=== PATIENT | female | born 1990 | race Caucasian/White ===

== ENCOUNTER 2016-07-14 19:35 | Emergency (ER) | payer OTHER ==
[~2016-07-14] VITALS: Ht 154.9 cm; Wt 85.4 kg
[~2016-07-14 19:35] MED LIST: MOTRIN800 MG PO
[2016-07-14 20:07] LABS: HEMATOCRIT 41.5 % (36.0-46.0); MCH 31.1 PG (29.0-34.0); MCV 94.3 FL (83-99); RBC DIS.WIDTH-CV 11.9 % (11.8-14.6); RBC DIS.WIDTH-SD 41.6 % (39-53); WHITE BLOOD COUNT 12.5 K/uL (4.1-10.2)
[2016-07-14 20:13] LABS: ADD MIUA? YES; BILIRUBIN NEGATIVE; BLOOD NEGATIVE; COLOR YELLOW ((YELLOW)); GLUCOSE (STRIP) NEGATIVE; KETONES NEGATIVE; LEUKOCYTES NEGATIVE; NITRITE NEGATIVE; PROTEIN (STRIP) NEGATIVE; SPECIFIC GRAVITY 1.027 (1.000-1.030)
[2016-07-14 20:22] LABS: CHLORIDE 105 mEq/L (99-109); SODIUM 139 mEq/L (136-147)
[2016-07-14 20:24] LABS: GLUCOSE 82 mg/dL (70-99)
[2016-07-14 20:25] LABS: ANION GAP 9 MEQ/L (2-14)
[2016-07-14 20:26] LABS: TOTAL BILIRUBIN 0.3 mg/dL (0.0-1.0)
[2016-07-14 20:28] LABS: ALKALINE PHOSPHATASE 75 IU/L (3-129); GFR ESTIMATE (CALCULATED) > 59 mL/min/
[2016-07-14 20:29] LABS: UREA NITROGEN (BUN) 9 mg/dL (9-23)
[2016-07-14 20:37] LABS: QUANTITATIVE HCG < 4.0 MIU/ML
[2016-07-14 20:51] LABS: PLATELET COUNT 265 K/uL (156-360)
[2016-07-14 21:13] LABS: BACTERIA NONE SEEN /HPF; EPITHELIAL CELLS 2+ /HPF; MUCUS TRACE /LPF; RED BLOOD CELLS 0-5 /HPF (0-5); UCUL ADDED? NO; WHITE BLOOD CELLS 0-5 /HPF (0-5)
[2016-07-14 21:14] LABS: CASTS NONE SEEN /LPF; CRYSTALS NONE SEEN
[2016-07-14 22:25] LABS: LIPASE 24 U/L (1.0-51.0)
[2016-07-15] MEDS ORDERED: ZOFRAN ODT4 MG PO (00:26)
[2016-07-15] MEDS ORDERED: ZITHROMAX Z-PA250 MG PO (00:26)
[2016-07-15 00:43] VITALS: BP 111/60
== END 2016-07-15 00:46 | disposition home or self-care (01) ==
LOC: EME 19:35
DX: R10.11 Right upper quadrant pain (principal); R59.1 Generalized enlarged lymph nodes; K92.0 Hematemesis; F17.200 Nicotine dependence, unspecified, uncomplicated
CPT/HCPCS: 76705; 80053; 81003; 83690; 84702; 85027; 99281; 99284

== ENCOUNTER 2016-12-27 03:56 | Emergency (ER) | payer OTHER ==
[~2016-12-27] VITALS: Ht 154.9 cm; Wt 80.9 kg
[~2016-12-27 03:56] MED LIST changes: +ZITHROMAX Z-PA250 MG PO; +ZOFRAN ODT4 MG PO
[2016-12-27 05:09] LABS: BASOPHIL COUNT 0.1 K/uL (0-0.1); EOSINOPHIL (%) 2.6 % (0-5); EOSINOPHIL COUNT 0.2 K/uL (0-0.3); IMMATURE GRANULOCYTE (%) 0.2 % (0.0-0.7); INSTRUMENT ABS NEUTROPHIL CT 6.4 K/uL; LYMPHOCYTE COUNT 1.1 K/uL (1.0-2.8); MCH 31.5 PG (29.0-34.0); MCHC 34.3 G/DL (30.0-36.0); MCV 91.9 FL (83-99); MEAN PLAT.VOLUME 11.7 uM^3 (9.5-12.4); MONOCYTE (%) 7.3 % (3-12); MONOCYTE COUNT 0.6 K/uL (0-0.8); NEUTROPHIL (%) 76.1 % (45-76); NEUTROPHIL COUNT 6.4 K/uL (1.8-6.4); PLATELET COUNT 152 K/uL (156-360); RBC DIS.WIDTH-CV 12.1 % (11.8-14.6); RED BLOOD COUNT 4.57 M/uL (3.80-5.20); WHITE BLOOD COUNT 8.5 K/uL (4.1-10.2)
[2016-12-27 05:17] LABS: CHLORIDE 105 mEq/L (99-109); POTASSIUM 3.8 mEq/L (3.7-5.4); SODIUM 138 mEq/L (136-147)
[2016-12-27 05:19] LABS: GLUCOSE 100 mg/dL (70-99)
[2016-12-27 05:20] LABS: ANION GAP 11 MEQ/L (2-14)
[2016-12-27 05:21] LABS: TOTAL BILIRUBIN 0.6 mg/dL (0.0-1.0)
[2016-12-27 05:23] LABS: ALKALINE PHOSPHATASE 91 IU/L (3-129); GFR ESTIMATE (CALCULATED) > 59 mL/min/
[2016-12-27 05:24] LABS: UREA NITROGEN (BUN) 14 mg/dL (9-23)
[2016-12-27 05:31] LABS: QUANTITATIVE HCG < 4.0 MIU/ML
[2016-12-27 05:44] LABS: ADD MIUA? YES; BILIRUBIN NEGATIVE; BLOOD MODERATE; COLOR YELLOW ((YELLOW)); GLUCOSE (STRIP) NEGATIVE; KETONES NEGATIVE; LEUKOCYTES TRACE; NITRITE NEGATIVE; PROTEIN (STRIP) NEGATIVE; SPECIFIC GRAVITY 1.018 (1.000-1.030); UROBILINOGEN 0.2 MG/DL (0.2-1.0)
[2016-12-27 05:45] LABS: BACTERIA RARE /HPF; EPITHELIAL CELLS 1+ /HPF; MUCUS TRACE /LPF; RED BLOOD CELLS 0-5 /HPF (0-5); UCUL ADDED? NO; WHITE BLOOD CELLS 0-5 /HPF (0-5)
[2016-12-27 06:27] LABS: C-REACTIVE PROTEIN 53.2 MG/L (0-10)
[2016-12-27] MEDS ORDERED: OXYCODONE H5 MG/5 ML PO ×2 (06:46→06:53)
[2016-12-27] MEDS ORDERED: CARAFATE100 MG/ML PO (06:46)
[2016-12-27] MEDS ORDERED: DECADRON4 MG PO (06:53)
[2016-12-27 07:45] VITALS: BP 100/50
== END 2016-12-27 07:45 | disposition home or self-care (01) ==
LOC: EME 03:56
PROVIDERS: Emergency Medicine
DX: B08.4 Enteroviral vesicular stomatitis with exanthem (principal); F17.200 Nicotine dependence, unspecified, uncomplicated; Z88.0 Allergy status to penicillin
CPT/HCPCS: 71020; 80053; 81003; 83605; 84702; 85025; 86140; 87040; 87651 90; 99281; 99285; J1100; J1885; J7030

== ENCOUNTER 2017-02-21 16:18 | Emergency (ER) | payer OTHER ==
[~2017-02-21] VITALS: Ht 157.5 cm; Wt 79.9 kg
[~2017-02-21 16:18] MED LIST changes: +CARAFATE100 MG/ML PO; +DECADRON4 MG PO; +OXYCODONE H5 MG/5 ML PO
[2017-02-21 16:32] VITALS: BP 164/92
[2017-02-21] MEDS ORDERED: SUDAFED 12-HOU120 MG PO (18:41)
== END 2017-02-21 19:00 | disposition home or self-care (01) ==
LOC: EME 16:18
DX: H92.01 Otalgia, right ear (principal); H65.01 Acute serous otitis media, right ear; J40 Bronchitis, not specified as acute or chronic; F41.9 Anxiety disorder, unspecified; F32.9 Major depressive disorder, single episode, unspecified; F17.200 Nicotine dependence, unspecified, uncomplicated; Z88.0 Allergy status to penicillin
CPT/HCPCS: 94664; 99281; 99282

== ENCOUNTER 2017-05-21 12:52 | Emergency (ER) | payer OTHER ==
[~2017-05-21] VITALS: Ht 157.5 cm; Wt 85.9 kg
[~2017-05-21 12:52] MED LIST changes: +SUDAFED 12-HOU120 MG PO
[2017-05-21 13:51] LABS: HEMATOCRIT 42.6 % (36.0-46.0); HEMOGLOBIN 14.8 G/DL (11.9-15.5); MCH 32.2 PG (29.0-34.0); MCHC 34.7 G/DL (30.0-36.0); MCV 92.8 FL (83-99); PLATELET COUNT 180 K/uL (156-360); RBC DIS.WIDTH-CV 12.7 % (11.8-14.6); RBC DIS.WIDTH-SD 43.2 % (39-53); RED BLOOD COUNT 4.59 M/uL (3.80-5.20); WHITE BLOOD COUNT 11.5 K/uL (4.1-10.2)
[2017-05-21 14:01] LABS: ALBUMIN 4.2 g/dL (3.2-4.8)
[2017-05-21 14:02] LABS: CHLORIDE 106 mEq/L (99-109); POTASSIUM 4.2 mEq/L (3.7-5.4); SODIUM 136 mEq/L (136-147)
[2017-05-21 14:04] LABS: GLUCOSE 93 mg/dL (70-99); TOTAL PROTEIN 7.2 g/dL (6.4-8.3)
[2017-05-21 14:06] LABS: TOTAL BILIRUBIN 1.2 mg/dL (0.0-1.0)
[2017-05-21 14:07] LABS: ALKALINE PHOSPHATASE 63 IU/L (3-129)
[2017-05-21 14:08] LABS: CREATININE 0.7 mg/dL (0.6-1.3); GFR ESTIMATE (CALCULATED) > 59 mL/min/
[2017-05-21 14:09] LABS: AST (GOT) 16 IU/L (2-34); UREA NITROGEN (BUN) 12 mg/dL (9-23)
[2017-05-21 14:11] LABS: ALT (GPT) 12 IU/L (3-49)
[2017-05-21 14:16] LABS: QUANTITATIVE HCG < 4.0 MIU/ML
[2017-05-21 19:02] LABS: APPEARANCE SL.HAZY ((CLEAR)); BILIRUBIN NEGATIVE; BLOOD SMALL; COLOR YELLOW ((YELLOW)); GLUCOSE (STRIP) NEGATIVE; KETONES NEGATIVE; LEUKOCYTES TRACE; NITRITE NEGATIVE; PROTEIN (STRIP) NEGATIVE; SPECIFIC GRAVITY 1.033 (1.000-1.030)
[2017-05-21 19:11] LABS: BACTERIA RARE /HPF; EPITHELIAL CELLS 1+ /HPF; MUCUS TRACE /LPF; UCUL ADDED? YES
[2017-05-21] MEDS ORDERED: ZOFRAN ODT4 MG PO (20:06)
[2017-05-21 20:54] VITALS: BP 106/60
== END 2017-05-21 20:57 | disposition home or self-care (01) ==
LOC: EME 12:52
DX: K52.9 Noninfective gastroenteritis and colitis, unspecified (principal); F17.200 Nicotine dependence, unspecified, uncomplicated; Z88.0 Allergy status to penicillin
CPT/HCPCS: 74177; 80053; 81003; 84702; 85027; 87086; 99281; 99285; J1885; J2405; J7030